=== PATIENT | female | born 1990 | race Caucasian/White ===

== ENCOUNTER → 2018-01-05 | Outpatient (CLI) | payer OTHER | LOC: BMCIMAGING 12:48 | PROVIDERS: ATTEND Internal Medicine | DX: M41.9 Scoliosis, unspecified (principal) ==

== ENCOUNTER 2018-03-03 15:31 | Emergency (ER) | payer OTHER ==
[2018-03-03] MEDS ORDERED: oxyCODONE IR 5 MG TAB PO ONE (18:29)
[2018-03-03] MEDS ORDERED: CYCLOBENZAPRINE 10 MG TAB PO ONE (18:29)
--- NOTE | 2018-03-03 18:29 | EDPHY ---
General Time Seen by Provider: 03/03/18 17:50 Narrative: CHIEF COMPLAINT: Back pain HISTORY OF PRESENT ILLNESS: Patient presents with complaints of thoracic back pain x7 days. Gradual onset constant duration. Severe pain between the shoulder blades on both sides. No chest pain. No shortness of breath. She does have worsening with palpation, movement and occasionally with deep inspiration. She has no extremity erythema edema or pain. No recent travel, trauma or surgery. She has had this pain past , December. She was worked by primary care physician with laboratory studies and x-rays reportedly unremarkable and not helpful. Her symptoms do not improve with [id number] medications. She has no neuro complaints. She reports that she also has pain all over that comes and goes and has been severe at times. No explanation or diagnosis for this yet. She is currently in between primary care physicians as she recently had to quit her job and has no insurance. No other associated complaints or modifying factors. ESTABLISHED ORTHOPEDIST: None REVIEW OF SYSTEMS: Ten systems reviewed and are negative unless otherwise noted in the HPI PAST MEDICAL HISTORY: Cholesteatoma, chronic pain PAST SURGICAL HISTORY: Cholesteatoma removal, LEEP SOCIAL HISTORY: Never smoker. No drug or alcohol use. Recently quit her job FAMILY HISTORY: Noncontributory EXAMINATION General Appearance: Alert, no distress. Tearful but consolable. Well developed and well nourished. Cardiovascular: Symmetric radial pulses with good signs of perfusion of the extremities. Neck: Supple nontender. No meningeal signs. No crepitus, step-off or deformity. Back: Tenderness in the soft tissue of the thoracic back. No midline tenderness of the thoracic or lumbar spine. Mild Scoliotic appearance. No fluctuance or tenderness to palpation over the spinous processes. Neurological: A&O, sensory symmetric, strength is symmetric in the elbows, wrists, knees and ankles. Strength is symmetric in the great toes with no footdrop. Skin: Warm and dry, no rash. No petechiae or purpura. Extremities: Nontender, no pedal edema. Symmetric range of motion all extremities. Psychiatric: Mood and affect normal DIFFERENTIAL DIAGNOSES: Including but not limited to musculoskeletal pain, muscle skeletal strain or sprain, radicular pain, MDM: 6:29 p.m. Pain the thoracic musculature that is exquisitely tender. There is no abnormality by direct visualization. No tenderness of the midline spine at any level. She has no meningeal signs. Vital signs are within normal limits and she does not have any complaints of illness, nor does she appear ill. She does appear to be in pain, thus I have ordered pain medication and muscle relaxant. I will discuss with attending physician. I will review her previous laboratory studies an x-ray. 7:20 p.m. Patient re-evaluated. She is feeling much better than time of arrival. She still has pain but she describes it as tolerable. She was able to ambulate to the restroom. She is comfortable with being discharged home at this time. I do feel this is a completely reproducible, musculoskeletal pain. She will be discharged home with prescription of oxycodone and short course of Flexeril. She has instructions to contact her primary care physician, and I provided on- call physician information for. She has ED precautions for worsening pain, any numbness, tingling or weakness. Also for any stiffness or pain in the neck, fever, chest pain or shortness of breath. Discharged home stable condition. SUPERVISION: This patient was independently evaluated without direct involvement of or examination by the attending physician. - History Smoking Status: Never smoked - Objective Vital Signs: Initial Vital Signs Temperature (C) 98.1 F 03/03/18 15:42 Heart Rate 68 03/03/18 15:42 Respiratory Rate 18 03/03/18 15:42 Blood Pressure 97/63 L 03/03/18 15:42 O2 Sat (%) 98 03/03/18 15:42 O2 Delivery Mode Room Air Allergies/Adverse Reactions: acetaminophen [From Tylenol] Allergy (Verified 03/03/18 15:41) ibuprofen Allergy (Verified 03/03/18 15:41) Home Medications: Medication Instructions Recorded Cyclobenzaprine [Flexeril 10 MG 10 mg PO TID PRN #11 tab 03/03/18 (*)] oxyCODONE IR [Oxycodone Ir (*)] 5 - 10 mg PO Q6 #11 tab 03/03/18 Medications Given: Discontinued Medications Cyclobenzaprine HCl (Flexeril) 10 mg PO EDNOW ONE Stop: 03/03/18 18:30 Last Admin: 03/03/18 18:34 Dose: 10 mg Oxycodone HCl (Oxycodone Ir) 5 mg PO EDNOW ONE Stop: 03/03/18 18:30 Last Admin: 03/03/18 18:33 Dose: 5 mg Departure - Departure Disposition: Home, Routine, Self-Care Clinical Impression: Acute right-sided thoracic back pain, Acute left-sided thoracic back pain Condition: Good Instructions: Thoracic Pain (ED), Lower Back Exercises (ED) Additional Instructions: 1. Prescriptions as provided as needed for pain 2. Contact your primary care physician for outpatient follow-up 3. ED precautions for worsening pain, any midline tenderness, fever, nausea, neck pain or stiffness, numbness tingling or weakness Referrals: Kristen Tuttle MD [Primary Care Provider] - As per Instructions Prescriptions: Cyclobenzaprine [Flexeril 10 MG (*)] 10 mg PO TID PRN #11 tab PRN Reason: Spasms oxyCODONE IR [Oxycodone Ir (*)] 5 - 10 mg PO Q6 #11 tab
[2018-03-03 19:26] VITALS: BP 117/64
== END 2018-03-03 19:33 | disposition home or self-care (01) ==
DX: M54.6 Pain in thoracic spine (principal)

== ENCOUNTER → 2018-07-09 | Outpatient (CLI) | payer MEDICAID | LOC: FCPNEURO 21:00 | PROVIDERS: ATTEND Physician Assistant Medical | DX: G47.33 Obstructive sleep apnea (adult) (pediatric) (principal); G47.61 Periodic limb movement disorder ==